=== PATIENT | female | born 1945 ===

== ENCOUNTER 2016-09-10 11:59 | Inpatient (IN) | payer MEDICARE, OTHER ==
[2016-09-10 12:00] VITALS: BMI 25.9
--- NOTE | 2016-09-10 12:33 | ED PDOC ---
HPI: SOB/CHF/COPD Time Seen by Provider: 09/10/16 12:30 Chief Complaint (Nursing): Shortness Of Breath Chief Complaint (Provider): nasal congestion History Per: Patient History/Exam Limitations: no limitations Onset/Duration Of Symptoms: Days (3 months) Current Symptoms Are (Timing): Still Present Additional Complaint(s): Pt. with cough, nasal congestion for 3 months. Today at [facility] and had breathing through her nose so she came to the ED. Pt. states no dyspnea when breathing from her mouth. No phlegm on cough. No nausea, vomit, diarrhea, weakness, abd pain. No vision changes. No chest pain. No leg pain. No dizziness, numbness , tingles. Past Medical History Reviewed: Nursing Documentation, Vital Signs Vital Signs: Last Vital Signs Temp 98.0 F 09/10/16 12:05 Pulse 70 09/10/16 12:05 Resp 17 09/10/16 12:09 BP 129/86 09/10/16 12:05 Pulse Ox 98 09/10/16 14:58 - Medical History PMH: Anxiety, Arthritis, Asthma, Cardia Arrhythmia, COPD, CVA (R leg weakness), Dementia, HTN, Hypothyroidism Denies: Diabetes, HIV, Chronic Kidney Disease - Surgical History Surgical History: Coronary Stent, Pacemaker - Family History Family History: States: Unknown Family Hx - Living Arrangements Living Arrangements: With Family - Social History Current smoker - smoking cessation education provided: No Alcohol: None Drugs: Denies - Immunization History Hx Tetanus Toxoid Vaccination: No Hx Influenza Vaccination: Yes Hx Pneumococcal Vaccination: Yes - Home Medications Home Medications: Ambulatory Orders Medication Instructions Recorded amLODIPine [Norvasc] 5 mg PO DAILY 03/29/15 Amiodarone [Cordarone] 200 mg PO DAILY 09/11/15 Atorvastatin [Lipitor] 20 mg PO HS 09/11/15 Levothyroxine Sodium [Synthroid] 137 mcg PO DAILY 09/11/15 Metoprolol Tartrate [Lopressor] 25 mg PO BID 09/11/15 Rivaroxaban [Xarelto] 20 mg PO DAILY 09/11/15 Nitrofurantoin Macrocrystals 100 mg PO BID #10 cap 03/07/16 [Macrobid] - Allergies Allergies/Adverse Reactions: Allergies Allergy/AdvReac Type Severity Reaction Status Date / Time Penicillins Allergy RASH Verified 09/10/16 12:26 Review of Systems ROS Statement: Except As Marked, All Systems Reviewed And Found Negative ENT: Positive for: Nose Congestion Respiratory: Positive for: Cough, Shortness of Breath (when breathing through nose) Physical Exam - Reviewed Nursing Documentation Reviewed: Yes Vital Signs Reviewed: Yes - Physical Exam Appears: Positive for: Well, Non-toxic, No Acute Distress Head Exam: Positive for: ATRAUMATIC, NORMAL INSPECTION, NORMOCEPHALIC Skin: Positive for: Normal Color, Warm, DRY Eye Exam: Positive for: EOMI, Normal appearance, PERRL ENT: Positive for: Nasal Congestion. Negative for: Pharyngeal Erythema, Tonsillar Exudate Neck: Positive for: Normal, Painless ROM, Supple Cardiovascular/Chest: Positive for: Regular Rate, Rhythm. Negative for: Edema Respiratory: Positive for: Normal Breath Sounds. Negative for: Accessory Muscle Use Gastrointestinal/Abdominal: Positive for: Normal Exam, Bowel Sounds, Soft. Negative for: Tenderness Back: Positive for: Normal Inspection. Negative for: L CVA Tenderness, R CVA Tenderness Extremity: Positive for: Normal ROM, Pedal Edema (trace b/l with trace pitting) . Negative for: Tenderness Neurologic/Psych: Positive for: Alert, Oriented - Laboratory Results Result Diagrams: 09/10/16 13:19 09/10/16 13:19 Interpretation Of Abn Labs: bun 27; probnp 2200 - ECG ECG: Positive for: Interpreted By Me, Viewed By Me ECG Rhythm: Positive for: Venticular Paced O2 Sat by Pulse Oximetry: 98 Pulse Ox Interpretation: Normal - Radiology X-Ray: Interpreted by Me, Viewed By Me X-Ray Interpretation: Cardiomegaly, Other (vascular congestion; pleural effusion ) - Progress ED Course And Treament: 1449: Stable. AAOx3. Feeling better. Will need obs tele admit for chf. Lasix and asa given. 1524: Spoke with Dr. Olson. Will admit tele obs. Will give further orders when pt. reaches floor. Disposition - Clinical Impression Clinical Impression: Acute exacerbation of CHF (congestive heart failure), Dehydration - Patient ED Disposition Is Patient to be Admitted: Yes Counseled Patient/Family Regarding: Studies Performed, Diagnosis - Disposition Disposition Time: 15:25 Condition: FAIR - Pt Status Changed To: Hospital Disposition Of: Observation - POA Present On Arrival: None
[2016-09-10] MEDS ORDERED: Sodium Chloride 0.9% 500 ML IV STA (12:44)
[2016-09-10 13:27] LABS: BASO % 0.8 % (0.0-2.0); EOS % 0.7 % (0.0-4.0); HEMATOCRIT 28.3 % (34.0-47.0); LYMPH # 1.7 K/uL (1.0-4.3); LYMPH % 40.2 % (20.0-40.0); MEAN CELL VOLUME 74.7 fl (81.0-99.0); MEAN CORPUSCULAR HEMOGLOBIN 23.4 pg (27.0-31.0); MEAN CORPUSCULAR HGB CONC 31.3 g/dL (33.0-37.0); MEAN PLATELET VOLUME 8.3 fl (7.2-11.7); MONO # 0.3 K/uL (0.0-0.8); MONO % 7.7 % (0.0-10.0); NEUT # 2.2 K/uL (1.8-7.0); NEUT % 50.6 % (50.0-75.0); NRBC % 0.1 % (0.0-0.0); RED CELL DISTRIBUTION WIDTH 18.1 % (11.5-14.5); WHITE BLOOD COUNT 4.3 K/uL (4.8-10.8)
[2016-09-10 13:47] LABS: ALKALINE PHOSPHATASE 74 U/L (38-126); ALT/SGPT 34 U/L (9-52); AST/SGOT 37 U/L (14-36); BILIRUBIN,TOTAL 0.3 mg/dl (0.2-1.3); BLOOD UREA NITROGEN 27 mg/dl (7-17); CARBON DIOXIDE 26 mmol/L (22-30); CHLORIDE 106 mmol/L (98-107); GFR AFRICAN-AMERICAN > 60; GLUCOSE,RANDOM 84 mg/dL (65-105); SODIUM 139 mmol/l (132-148); TOTAL PROTEIN 7.4 G/DL (6.3-8.2)
[2016-09-10 13:48] LABS: POTASSIUM 4.2 MMOL/L (3.6-5.0)
--- NOTE | 2016-09-10 14:01 | RAD ---
HISTORY: dyspnea COMPARISON: No prior. FINDINGS: LUNGS: Mild vascular congestive changes with what appears represent small right-sided effusion. There may also be some mild bibasilar atelectasis or possibly developing lower lobe alveolar-type infiltrates. PLEURA: No significant pleural effusion identified, no pneumothorax apparent. CARDIOVASCULAR: Cardiomegaly.Ectatic uncoiled aorta. OSSEOUS STRUCTURES: No significant abnormalities. VISUALIZED UPPER ABDOMEN: Normal. OTHER FINDINGS: None. IMPRESSION: Mild vascular congestive changes with what appears represent small right-sided effusion. There may also be some mild bibasilar atelectasis or possibly developing lower lobe alveolar-type infiltrates. Cardiomegaly. Ectatic uncoiled aorta.
[2016-09-10 14:16] LABS: PARTIAL THROMBOPLASTIN TIME 29.8 SECONDS (23.3-32.5)
[2016-09-10] MEDS: guaiFENesin 200 mg/10 ml Syrup UD PO PRN (20:50)
[2016-09-10] MEDS: levoFLOXacin 500 mg in D5W 500 MG/100 ML BAG IVPB SCH (21:35)
[2016-09-11] MEDS: Levothyroxine 175 MCG TAB PO SCH ×2 (05:34→05:38)
[2016-09-11] MEDS ORDERED: Enoxaparin 40 mg Syringe SC SCH (09:00)
[2016-09-11] MEDS: levoFLOXacin 500 mg in D5W 500 MG/100 ML BAG IVPB SCH ×2 (10:08→21:40)
[2016-09-11 10:35] LABS: MEAN CELL VOLUME 75.7 fl (81.0-99.0); MEAN CORPUSCULAR HEMOGLOBIN 23.4 pg (27.0-31.0); RED CELL DISTRIBUTION WIDTH 18.2 % (11.5-14.5); WHITE BLOOD COUNT 4.4 K/uL (4.8-10.8)
[2016-09-11 11:20] LABS: CALCIUM 11.8 mg/dL (8.4-10.2); POTASSIUM 3.2 MMOL/L (3.6-5.0)
[2016-09-11 13:21] LABS: IRON 45 ug/dL (37-170)
--- NOTE | 2016-09-11 13:58 | CP.PCM.HP ---
<Marylin Talamantes - Last Filed: 09/11/16 13:55> History of Present Illness - History of Present Illness History of Present Illness: 71yo F with PMHx Anxiety, Arthritis, Asthma, Cardiac Arrhythmia (pacemaker, Xarelto), COPD, CVA (R leg weakness), Dementia, HTN, Hypothyroidism admitted for CHF exacerbation and dehydration. c/o worsening SOB x3 days. denies LE edema. PMHx as above SHx: pacemaker, CABG FHx: denies Social: denies x3 Allergies: PCN evaluated with attending Present on Admission - Present on Admission Any Indicators Present on Admission: No Review of Systems - Constitutional Constitutional: absent: Chills, Fever - Cardiovascular Cardiovascular: absent: Chest Pain - Respiratory Respiratory: Cough, Dyspnea - Gastrointestinal Gastrointestinal: absent: Abdominal Pain, Diarrhea, Nausea, Vomiting - Genitourinary Genitourinary: absent: Dysuria, Hematuria - Musculoskeletal Musculoskeletal: absent: Back Pain - Neurological Neurological: absent: Headaches Past Patient History - Past Medical History & Family History Past Medical History?: Yes - Past Social History Smoking Status: Former Smoker - CARDIAC Hx Cardiac Disorders: Yes Hx Cardia Arrhythmia: Yes Hx Hypertension: Yes Hx Pacemaker: Yes - PULMONARY Hx Respiratory Disorders: Yes Hx Asthma: Yes - NEUROLOGICAL Hx Neurological Disorder: Yes HX Cerebrovascular Accident: Yes Hx Dementia: Yes - HEENT Hx HEENT Problems: Yes Hx Glaucoma: Yes - RENAL Hx Chronic Kidney Disease: No - ENDOCRINE/METABOLIC Hx Endocrine Disorders: Yes Hx Hypothyroidism: Yes - HEMATOLOGICAL/ONCOLOGICAL Hx Blood Disorders: No Hx Human Immunodeficiency Virus (HIV): No - INTEGUMENTARY Hx Dermatological Problems: No - MUSCULOSKELETAL/RHEUMATOLOGICAL Hx Musculoskeletal Disorders: Yes Hx Arthritis: Yes Hx Falls: No - GASTROINTESTINAL Hx Gastrointestinal Disorders: No - GENITOURINARY/GYNECOLOGICAL Hx Genitourinary Disorders: No - PSYCHIATRIC Hx Psychophysiologic Disorder: Yes Hx Anxiety: Yes Hx Substance Use: No - SURGICAL HISTORY Hx Surgeries: Yes Hx Coronary Stent: Yes Other/Comment: pacemaker - ANESTHESIA Hx Anesthesia: Yes Hx Anesthesia Reactions: No Hx Malignant Hyperthermia: No Meds Home Medications: Home Medication List Medication Instructions Recorded Confirmed Type Benzonatate [Tessalon Perles] 200 mg PO TID PRN #14 sgl 09/13/16 Rx Ferrous Sulfate [Feosol] 325 mg PO TID #90 tab 09/13/16 Rx Furosemide [Lasix] 40 mg PO DAILY #30 udc 09/13/16 Rx Levofloxacin [Levaquin] 500 mg PO DAILY #5 tablet 09/13/16 Rx Loratadine [Claritin] 10 mg PO DAILY #30 tab 09/13/16 Rx Ramipril [Altace] 2.5 mg PO DAILY #30 cap 09/13/16 Rx guaiFENesin [Robitussin] 200 mg PO Q6 PRN #30 09/13/16 Rx Allergies/Adverse Reactions: Allergies Allergy/AdvReac Type Severity Reaction Status Date / Time Penicillins Allergy RASH Verified 09/10/16 12:26 Physical Exam - Head Exam Head Exam: ATRAUMATIC, NORMAL INSPECTION - Eye Exam Eye Exam: Normal appearance - ENT Exam ENT Exam: Mucous Membranes Dry - Neck Exam Neck exam: Positive for: Normal Inspection - Respiratory Exam Respiratory Exam: Rales - Cardiovascular Exam Cardiovascular Exam: REGULAR RHYTHM (pacemaker) - GI/Abdominal Exam GI & Abdominal Exam: Normal Bowel Sounds, Soft - Neurological Exam Neurological exam: Alert, Oriented x3 - Skin Skin Exam: Dry, Warm Results - Vital Signs Recent Vital Signs: Last Vital Signs Temp 97.6 F 09/11/16 12:21 Pulse 71 09/11/16 13:30 Resp 19 09/11/16 12:21 BP 103/68 09/11/16 12:21 Pulse Ox 100 09/11/16 12:21 - Labs Result Diagrams: 09/11/16 10:00 09/11/16 10:00 Labs: Laboratory Results - last 24 hr 09/11/16 09/11/16 09/11/16 10:00 10:00 10:43 WBC 4.4 L RBC 4.63 Hgb 10.8 L Hct 35.0 MCV 75.7 L MCH 23.4 L MCHC 31.0 L RDW 18.2 H Plt Count 248 Sodium 143 Potassium 3.2 L Chloride 105 Carbon Dioxide 25 Anion Gap 16 BUN 22 H Creatinine 1.1 Est GFR ( Amer) 59 Est GFR (Non-Af Amer) 49 Random Glucose 132 H Calcium 11.8 H Iron 45 TIBC 416 % Saturation 11 L Ferritin 8.8 Vitamin B12 217 L Assessment & Plan - Assessment and Plan (Free Text) Assessment: 71yo F with PMHx Anxiety, Arthritis, Asthma, arrythmia/CAD (pacemaker), COPD, CVA (R leg weakness), Dementia, HTN, Hypothyroidism admitted for CHF exacerbation and dehydration. acute on chronic CHF exacerbation -ECHO -ACEi -lasix -c/s cardio community aquired pneumonia -CXR: lower lobe infiltrate -levaquin acute renal injury -monitor renal function -lasix dose to be monitored -IVF prn Asthma, COPD -c/w home med -breathing tx Dementia -c/w home med arrythmia/CAD -c/w ASA, Xarelto HTN -c/w home med Hypothyroidism -c/w home med DVT ppx -restart lovenox tomorrow Decision To Admit - Pt Status Changed To: Hospital Disposition Of: Inpatient - Admit Certification Admit to Inpatient:: After my assessment, the patient will require hospitalization for at least two midnights. This is because of the severity of symptoms shown, intensity of services needed, and/or the medical risk in this patient being treated as an outpatient. - . Bed Request Type: Telemetry Admitting Physician: Mike Olson <Mike Olson Last Filed: 09/13/16 17:57> Results - Vital Signs Recent Vital Signs: Last Vital Signs Temp 97.7 F 09/13/16 12:55 Pulse 70 09/13/16 12:55 Resp 18 09/13/16 12:55 BP 105/70 09/13/16 12:55 Pulse Ox 97 09/13/16 12:55 - Labs Result Diagrams: 09/11/16 10:00 09/13/16 06:00 Labs: Laboratory Results - last 24 hr 09/13/16 06:00 Sodium 142 Potassium 3.9 Chloride 106 Carbon Dioxide 26 Anion Gap 13 BUN 33 H Creatinine 1.1 Est GFR ( Amer) 59 Est GFR (Non-Af Amer) 49 Random Glucose 87 Calcium 11.4 H Assessment & Plan - Assessment and Plan (Free Text) Assessment: Patient seen and examined with residents in rounds. Case, condition, investigative work up and plan discussed in detail. Agree with residents progress note. Plan: As ordered. (Mike Olson MD)
[2016-09-11] MEDS ORDERED: Albuterol-Ipratrop 3 mg / 0.5 (3 ml) UD INH PRN (14:03)
--- NOTE | 2016-09-11 16:26 | CP.PCM.CON ---
History of Present Illness - History of Present Illness History of Present Illness: I was asked to see patient by Dr Olson. Patient is a 71 year old female with a history of HTN, atrial fibrillation. MVR , PPM who presents with cough. Symtpoms have been productive and are associated with sputum production. The patient has had concomitant dyspnea. The patient was found to have pneumonia. The patient denies chest pain or dyspnea. Review of Systems - Constitutional Constitutional: absent: As Per HPI, Anorexia, Chills, Daytime Sleepiness, Excessive Sweating, Fatigue, Fever, Frequent Falls, Headache, Increased Appetite , Lethargy, Malaise, Night Sweats, Snoring, Sleep Apnea, Weight Gain, Weight Loss, Weakness, Other - EENT Eyes: absent: As Per HPI, Blind Spots, Blurred Vision, Change in Vision, Decreased Night Vision, Diplopia, Discharge, Dry Eye, Exophthalmos, Floaters, Irritation, Itchy Eyes, Loss of Peripheral Vision, Pain, Photophobia, Requires Corrective Lenses, Sees Flashes, Spots in Vision, Tunnel Vision, Other Visual Disturbances, Loss of Vision, Other Ears: absent: As Per HPI, Decreased Hearing, Ear Discharge, Ear Pain, Tinnitus, Abnormal Hearing, Disequilibrium, Dizziness, Other Nose/Mouth/Throat: absent: As Per HPI, Epistaxis, Nasal Congestion, Nasal Discharge, Nasal Obstruction, Nasal Trauma, Nose Pain, Post Nasal Drip, Sinus Pain, Sinus Pressure, Bleeding Gums, Change in Voice, Dental Pain, Dry Mouth, Dysphagia, Halitosis, Hoarsness, Lip Swelling, Mouth Lesions, Mouth Pain, Odynophagia, Sore Throat, Throat Swelling, Tongue Swelling, Facial Pain, Neck Pain, Neck Mass, Other - Breasts Breasts: absent: As Per HPI, Change in Shape, Mass, Pain, Nipple Discharge, Nipple Inversion, Skin Changes, Swelling, Other - Cardiovascular Cardiovascular: absent: As Per HPI, Acrocyanosis, Chest Pain, Chest Pain at Rest , Chest Pain with Activity, Claudication, Diaphoresis, Dyspnea, Dyspnea on Exertion, Edema, Irregular Heart Rhythm, Pain Radiating to Arm/Neck/Jaw, Leg Edema, Leg Ulcers, Lightheadedness, Orthopnea, Palpitations, Paroxysmal Nocturnal Dyspnea, Pedal Edema, Radiating Pain, Rapid Heart Rate, Slow Heart Rate, Syncope, Other - Respiratory Respiratory: Cough, Dyspnea on Exertion - Gastrointestinal Gastrointestinal: absent: As Per HPI, Abdominal Pain, Belching, Bloating, Change in Bowel Habits, Change in Stool Character, Coffee Ground Emesis, Constipation, Cramping, Diarrhea, Dyspepsia, Dysphagia, Early Satiety, Excessive Flatus, Fecal Incontinence, Heartburn, Hematemesis, Hematochezia, Loose Stools, Melena, Nausea, Odynophagia, Temesmus, Vomiting, Other - Genitourinary Genitourinary: absent: As Per HPI, Change in Urinary Stream, Difficulty Urinating, Dysuria, Flank Pain, Hematuria, Pyuria, Nocturia, Urinary Incontinence, Urinary Frequency, Urinary Hesitance, Urinary Urgency, Voiding Freq/Small Amts, Freq UTI, Hx Renal/Bladder Calculi, Hx /Renal Surgery, Bladder Distension, Other - Musculoskeletal Musculoskeletal: absent: As Per HPI, Abnormal Gait, Arthralgias, Atrophy, Back Pain, Deformity, Joint Swelling, Limited Range of Motion, Loss of Height, Muscle Cramps, Muscle Weakness, Myalgias, Neck Pain, Numbness, Radiating Pain into Limb, Stiffness, Tingling, Other - Integumentary Integumentary: absent: As Per HPI, Acne, Alopecia, Bleeding Lesions, Change in Hair, Change in Nails, Change in Pigmentation, Changing Lesions, Dry Skin, Erythema, Furuncle, Hirsutism, Lesions, New Lesions, Non-Healing Lesions, Photosensitivity, Pruritus, Rash, Skin Pain, Skin Ulcer, Sores, Striae, Swelling , Unusual Bruising, Wounds, Jaundice, Other - Neurological Neurological: absent: As Per HPI, Abnormal Gait, Abnormal Hearing, Abnormal Movements, Abnormal Speech, Behavioral Changes, Burning Sensations, Confusion, Convulsions, Disequilibrium, Dizziness, Numbness, Focal Weakness, Frequent Falls , Headaches, Lack of Coordination, Loss of Vision, Memory Loss, Paresthesias, Radicular Pain, Restless Legs, Sensory Deficit, Syncope, Tingling, Tremor, Vertigo, Weakness, Other Visual Disturbances, Other - Psychiatric Psychiatric: absent: As Per HPI, Abnormal Sleep Pattern, Anhedonia, Anxiety, Auditory Hallucinations, Behavioral Changes, Change in Appetite, Change in Libido, Confusion, Depression, Difficulty Concentrating, Hallucinations, Homicidal Ideation, Hopelessness, Irritability, Memory Loss, Mood Swings, Panic Attacks, Paranoia, Suicidal Ideation, Visual Hallucinations, Tactile Hallucinations, Other - Endocrine Endocrine: absent: As Per HPI, Change in Body Appearance, Change in Libido, Cold Intolorance, Deepening of Voice, Excessive Sweating, Fatigue, Flushing, Heat Intolorance, Increase in Ring/Shoe/Hat Size, Palpitations, Polydipsia, Polyphagia, Polyuria, Other - Hematologic/Lymphatic Hematologic: absent: As Per HPI, Easy Bleeding, Easy Bruising, Lymphadenopathy, Other Past Patient History - Past Medical History & Family History Past Medical History?: Yes - Past Social History Smoking Status: Former Smoker - CARDIAC Hx Cardiac Disorders: Yes Hx Atrial Fibrillation: Yes Hx Hypercholesterolemia: Yes Hx Hypertension: Yes Hx Pacemaker: Yes - PULMONARY Hx Respiratory Disorders: Yes Hx Asthma: Yes - NEUROLOGICAL Hx Neurological Disorder: Yes HX Cerebrovascular Accident: Yes Hx Dementia: Yes Hx Transient Ischemic Attacks (TIA): Yes - HEENT Hx HEENT Problems: Yes Hx Glaucoma: Yes - RENAL Hx Chronic Kidney Disease: No - ENDOCRINE/METABOLIC Hx Endocrine Disorders: Yes Hx Hypothyroidism: Yes - HEMATOLOGICAL/ONCOLOGICAL Hx Blood Disorders: No Hx Human Immunodeficiency Virus (HIV): No - INTEGUMENTARY Hx Dermatological Problems: No - MUSCULOSKELETAL/RHEUMATOLOGICAL Hx Musculoskeletal Disorders: Yes Hx Arthritis: Yes Hx Falls: No - GASTROINTESTINAL Hx Gastrointestinal Disorders: No - GENITOURINARY/GYNECOLOGICAL Hx Genitourinary Disorders: No - PSYCHIATRIC Hx Psychophysiologic Disorder: Yes Hx Anxiety: Yes Hx Substance Use: No - SURGICAL HISTORY Hx Surgeries: Yes Hx Coronary Stent: No Hx Valve Replacement: Yes (mitral valve) Other/Comment: pacemaker - ANESTHESIA Hx Anesthesia: Yes Hx Anesthesia Reactions: No Hx Malignant Hyperthermia: No Meds Allergies/Adverse Reactions: Allergies Allergy/AdvReac Type Severity Reaction Status Date / Time Penicillins Allergy RASH Verified 09/10/16 12:26 - Medications Medications: Current Medications Albuterol/Ipratropium (Duoneb 3 Mg/0.5 Mg (3 Ml) Ud) 3 ml INH RQ6 PRN PRN Reason: Shortness of Breath Amiodarone HCl (Cordarone) 200 mg PO DAILY [facility] Last Admin: 09/11/16 09:34 Dose: 200 mg Cyanocobalamin (Vitamin B12 1000 Mcg Tab) 1,000 mcg PO DAILY [facility] Docusate Sodium (Colace) 100 mg PO BID [facility] Ferrous Sulfate (Feosol) 325 mg PO TID [facility] Furosemide (Lasix) 40 mg IVP DAILY [facility] Last Admin: 09/11/16 09:35 Dose: 40 mg Guaifenesin (Robitussin) 200 mg PO Q6 PRN PRN Reason: Cough Last Admin: 09/10/16 20:50 Dose: 200 mg Levofloxacin/Dextrose (Levaquin 500mg) 500 mg in 100 mls @ 100 mls/hr IVPB DAILY@2200 [facility] Latanoprost (Xalatan Opht) 1 drop OD HS [facility] Levothyroxine Sodium (Synthroid) 175 mcg PO 0630 [facility] Last Admin: 09/11/16 05:38 Dose: 175 mcg Metoprolol Tartrate (Lopressor) 50 mg PO DAILY [facility] Last Admin: 09/11/16 09:39 Dose: 50 mg Montelukast Sodium (Singulair) 10 mg PO DAILY [facility] Last Admin: 09/11/16 09:40 Dose: 10 mg Montelukast Sodium (Singulair) 10 mg PO DAILY [facility] Ramipril (Altace) 2.5 mg PO DAILY [facility] Last Admin: 09/11/16 09:33 Dose: 2.5 mg Rivaroxaban (Xarelto) 20 mg PO DAILY [facility] PRN Reason: Protocol Results - Vital Signs Recent Vital Signs: Last Vital Signs Temp 98.4 F 09/11/16 16:00 Pulse 70 09/11/16 16:00 Resp 18 09/11/16 16:00 BP 108/72 09/11/16 16:00 Pulse Ox 100 09/11/16 16:00 - Labs Result Diagrams: 09/11/16 10:00 09/11/16 10:00 Labs: Laboratory Results - last 24 hr 09/11/16 09/11/16 09/11/16 10:00 10:00 10:43 WBC 4.4 L RBC 4.63 Hgb 10.8 L Hct 35.0 MCV 75.7 L MCH 23.4 L MCHC 31.0 L RDW 18.2 H Plt Count 248 Sodium 143 Potassium 3.2 L Chloride 105 Carbon Dioxide 25 Anion Gap 16 BUN 22 H Creatinine 1.1 Est GFR ( Amer) 59 Est GFR (Non-Af Amer) 49 Random Glucose 132 H Calcium 11.8 H Iron 45 TIBC 416 % Saturation 11 L Ferritin 8.8 Vitamin B12 217 L - EKG Data EKG Interpreted by: Myself Assessment & Plan (1) Chronic atrial fibrillation Assessment and Plan: continue Xarelto Status: Acute (2) Essential (primary) hypertension Assessment and Plan: blood pressure controlled Status: Chronic (3) Type 2 diabetes mellitus without complications Assessment and Plan: recommend continued glucose control Status: Chronic
[2016-09-11] MEDS: guaiFENesin 200 mg/10 ml Syrup UD PO PRN (16:44)
[2016-09-11] MEDS: Latanoprost 0.005% Opht SOUTION OD SCH (21:40)
[2016-09-12] MEDS: Levothyroxine 175 MCG TAB PO SCH (06:16)
[2016-09-12 13:55] LABS: FOLATE 12.7 ng/mL
[2016-09-12] MEDS: Potassium Chloride 20 mEq ER Tab PO SCH (17:28)
--- NOTE | 2016-09-12 18:32 | CARD ---
APPROVED REPORT EXAM: Two-dimensional and M-mode echocardiogram with Doppler and color Doppler. Other Information Quality : AverageRhythm : NSR INDICATION Congestive Heart Failure 2D DIMENSIONS IVSd1.60 (0.7-1.1cm)LVDd4.55 (3.9-5.9cm) LVOT Diameter2.16 (1.8-2.4cm)PWd1.08 (0.7-1.1cm) IVSs1.29 (0.8-1.2cm)LVDs3.98 (2.5-4.0cm) FS (%) 12.6 %PWs1.25 (0.8-1.2cm) M-Mode DIMENSIONS Left Atrium (MM)4.80 (2.5-4.0cm)Aortic Root4.00 (2.2-3.7cm) Aortic Cusp Exc.2.92 (1.5-2.0cm) Aortic Valve LVOT Peak Glrttiwk719.4cm/s Mitral Valve MV E Zfrnuguz875.7cm/sMV DECEL [id number] A Xofjwbdg57.7cm/s MV GKC62glD/A ratio4.5MVA (PHT)2.82cm2 TDI Lateral E' Peak V14.01cm/sMedial E' Peak V5.62cm/sE/Lateral E'7.7 E/Medial E'19.2 Pulmonary Valve PV Peak Oraqbivb27.6cm/s Tricuspid Valve TR Peak Cgxztesn037dd/sRAP [id number] Peak Gr.21mmHg [id number] LEFT VENTRICLE The left ventricle is normal size. There is normal left ventricular wall thickness. The left ventricular function is normal. The left ventricular ejection fraction is 55% There is normal LV segmental wall motion. Transmitral Doppler flow pattern is Grade IV-fixed restrictive diastolic dysfunction. No left ventricle thrombus noted on this study. There is no ventricular septal defect visualized. There is no left ventricular aneurysm. There is no mass noted in the left ventricle. RIGHT VENTRICLE The right ventricle is normal size. There is normal right ventricular wall thickness. The right ventricular systolic function is normal. ATRIA The left atrium is mildly dilated. The right atrium is mildly dilated. The interatrial septum is intact with no evidence for an atrial septal defect. AORTIC VALVE The aortic valve is mildly sclerotic. There is trace aortic regurgitation. There is no aortic valvular stenosis. There is no aortic valvular vegetation. MITRAL VALVE The mitral valve is normal in structure and function. There is no evidence of mitral valve prolapse. There is no mitral valve stenosis. There is no mitral valve regurgitation noted. TRICUSPID VALVE The tricuspid valve is normal in structure and function. There is no tricuspid valve regurgitation noted. There is no tricuspid valve prolapse or vegetation. There is no tricuspid valve stenosis. PULMONIC VALVE The pulmonary valve is normal in structure and function. There is trace pulmonic valvular regurgitation. There is no pulmonic valvular stenosis. GREAT VESSELS The aortic root is normal in size. The ascending aorta is normal in size. The IVC is normal in size and collapses >50% with inspiration. PERICARDIAL EFFUSION The pericardium appears normal. There is no pleural effusion. <Conclusion> Normal LV Systolic Function Aortic Valve Sclerosis Trace AI Diastolic dysfunction with restrictive diastolic filling
[2016-09-12] MEDS: Latanoprost 0.005% Opht SOUTION OD SCH (21:50)
[2016-09-12] MEDS: guaiFENesin 200 mg/10 ml Syrup UD PO PRN (21:50)
[2016-09-12] MEDS: levoFLOXacin 500 mg in D5W 500 MG/100 ML BAG IVPB SCH (22:31)
[2016-09-13] MEDS: Levothyroxine 175 MCG TAB PO SCH (06:14)
[2016-09-13 06:38] LABS: CALCIUM 11.4 mg/dL (8.4-10.2)
[2016-09-13 07:45] LABS: POTASSIUM 3.9 MMOL/L (3.6-5.0)
[2016-09-13 08:17] VITALS: RESP 18
[2016-09-13] MEDS: Potassium Chloride 20 mEq ER Tab PO SCH (08:59)
--- NOTE | 2016-09-13 09:02 | CP.PCM.DIS ---
<Marylin Talamantes - Last Filed: 09/13/16 12:55> Provider - Provider Date of Admission: 09/11/16 09:19 Attending physician: Mike Olson MD Time Spent in preparation of Discharge (in minutes): 20 Diagnosis - Discharge Diagnosis (1) CAP (community acquired pneumonia) Status: Acute (2) Acute exacerbation of CHF (congestive heart failure) Status: Acute (3) Chronic atrial fibrillation Status: Acute (4) CAD (coronary artery disease) Status: Chronic (5) Essential (primary) hypertension Status: Chronic (6) Hypothyroid Status: Chronic (7) Mixed hyperlipidemia Status: Chronic (8) Type 2 diabetes mellitus without complications Status: Chronic Hospital Course - Lab Results Lab Results: Most Recent Lab Values WBC 4.4 K/uL (4.8-10.8) L 09/11/16 10:00 RBC 4.63 Mil/uL (3.80-5.20) 09/11/16 10:00 Hgb 10.8 g/dL (12.0-16.0) L 09/11/16 10:00 Hct 35.0 % (34.0-47.0) 09/11/16 10:00 MCV 75.7 fl (81.0-99.0) L 09/11/16 10:00 MCH 23.4 pg (27.0-31.0) L 09/11/16 10:00 MCHC 31.0 g/dL (33.0-37.0) L 09/11/16 10:00 RDW 18.2 % (11.5-14.5) H 09/11/16 10:00 Plt Count 248 K/uL (130-400) 09/11/16 10:00 MPV 8.3 fl (7.2-11.7) 09/10/16 13:19 Neut % (Auto) 50.6 % (50.0-75.0) 09/10/16 13:19 Lymph % (Auto) 40.2 % (20.0-40.0) H 09/10/16 13:19 Smith % (Auto) 7.7 % (0.0-10.0) 09/10/16 13:19 Eos % (Auto) 0.7 % (0.0-4.0) 09/10/16 13:19 Baso % (Auto) 0.8 % (0.0-2.0) 09/10/16 13:19 Neut # 2.2 K/uL (1.8-7.0) 09/10/16 13:19 Lymph # 1.7 K/uL (1.0-4.3) 09/10/16 13:19 Smith # 0.3 K/uL (0.0-0.8) 09/10/16 13:19 Eos # 0.0 K/uL (0.0-0.7) 09/10/16 13:19 Baso # 0.0 K/uL (0.0-0.2) 09/10/16 13:19 PT 13.9 SECONDS (9.6-11.2) H 09/10/16 13:19 INR 1.34 (0.92-1.08) H 09/10/16 13:19 APTT 29.8 SECONDS (23.3-32.5) 09/10/16 13:19 Sodium 142 mmol/l (132-148) 09/13/16 06:00 Potassium 3.9 MMOL/L (3.6-5.0) 09/13/16 06:00 Chloride 106 mmol/L (98-107) 09/13/16 06:00 Carbon Dioxide 26 mmol/L (22-30) 09/13/16 06:00 Anion Gap 13 (10-20) 09/13/16 06:00 BUN 33 mg/dl (7-17) H 09/13/16 06:00 Creatinine 1.1 mg/dL (0.7-1.2) 09/13/16 06:00 Est GFR ( Amer) 59 09/13/16 06:00 Est GFR (Non-Af Amer) 49 09/13/16 06:00 Random Glucose 87 mg/dL (65-105) 09/13/16 06:00 Calcium 11.4 mg/dL (8.4-10.2) H 09/13/16 06:00 Iron 45 ug/dL (37-170) 09/11/16 10:43 TIBC 416 ug/dL (250-450) 09/11/16 10:43 % Saturation 11 % (20-55) L 09/11/16 10:43 Ferritin 8.8 ng/mL 09/11/16 10:00 Total Bilirubin 0.3 mg/dl (0.2-1.3) 09/10/16 13:19 AST 37 U/L (14-36) H 09/10/16 13:19 ALT 34 U/L (9-52) 09/10/16 13:19 Alkaline Phosphatase 74 U/L (38-126) 09/10/16 13:19 Troponin I < 0.0120 ng/mL (0.00-0.120) 09/10/16 13:19 NT-Pro-B Natriuret Pep 2200 pg/ml (0-900) H 09/10/16 13:19 Total Protein 7.4 G/DL (6.3-8.2) 09/10/16 13:19 Albumin 3.8 g/dL (3.5-5.0) 09/10/16 13:19 Globulin 3.6 gm/dL (2.2-3.9) 09/10/16 13:19 Albumin/Globulin Ratio 1.0 (1.0-2.1) 09/10/16 13:19 Vitamin B12 217 pg/mL (239-931) L 09/11/16 10:00 Folate 12.7 ng/mL 09/11/16 10:00 - Hospital Course Hospital Course: 71yo F with PMHx Anxiety, Arthritis, Asthma, Cardiac Arrhythmia/Afib (pacemaker , Xarelto), COPD, CVA (R leg weakness), Dementia, HTN, Hypothyroidism admitted for CHF exacerbation and dehydration. CHF exacerbation treated with IV lasix which pt responded well to and cardio Dr. Lott c/s for management. CXR showed pneumonia and IV levaquin started with continuation of PO levaquin upon discharge. Discharge Exam - Head Exam Head Exam: ATRAUMATIC, NORMAL INSPECTION - Eye Exam Eye Exam: Normal appearance - ENT Exam ENT Exam: Mucous Membranes Moist - Neck Exam Neck exam: Normal Inspection - Respiratory Exam Respiratory Exam: NORMAL BREATHING PATTERN - Cardiovascular Exam Cardiovascular Exam: REGULAR RHYTHM - GI/Abdominal Exam GI & Abdominal Exam: Soft - Extremities Exam Extremities exam: pedal edema - Neurological Exam Neurological exam: Alert, Oriented x3 - Skin Skin Exam: Dry, Warm Discharge Plan - Discharge Medications Prescriptions: Benzonatate [Tessalon Perles] 200 mg PO TID PRN #14 sgl PRN Reason: Cough Ferrous Sulfate [Feosol] 325 mg PO TID #90 tab Furosemide [Lasix] 40 mg PO DAILY #30 udc guaiFENesin [Robitussin] 200 mg PO Q6 PRN #30 PRN Reason: Cough Levofloxacin [Levaquin] 500 mg PO DAILY #5 tablet Loratadine [Claritin] 10 mg PO DAILY #30 tab Ramipril [Altace] 2.5 mg PO DAILY #30 cap - Follow Up Plan Condition: FAIR Disposition: HOME/ ROUTINE Instructions: Heart Failure (DC), Bacterial Pneumonia (DC) Additional Instructions: patient cleared for discharge to Home today by and meds to meds ( rx for meds provided) pt wishes to [facility] meds at her outpatient pharmacy ([place]) f/u with and (appointment made with on at 9 am Referrals: Liudmila Milner MD [Medical Doctor] - Armen Lott MD [Staff Provider] - <Mike Olson - Last Filed: 09/13/16 18:08> Provider - Provider Date of Admission: 09/11/16 09:19 Attending physician: Mike Olson MD Hospital Course - Lab Results Lab Results: Most Recent Lab Values WBC 4.4 K/uL (4.8-10.8) L 09/11/16 10:00 RBC 4.63 Mil/uL (3.80-5.20) 09/11/16 10:00 Hgb 10.8 g/dL (12.0-16.0) L 09/11/16 10:00 Hct 35.0 % (34.0-47.0) 09/11/16 10:00 MCV 75.7 fl (81.0-99.0) L 09/11/16 10:00 MCH 23.4 pg (27.0-31.0) L 09/11/16 10:00 MCHC 31.0 g/dL (33.0-37.0) L 09/11/16 10:00 RDW 18.2 % (11.5-14.5) H 09/11/16 10:00 Plt Count 248 K/uL (130-400) 09/11/16 10:00 MPV 8.3 fl (7.2-11.7) 09/10/16 13:19 Neut % (Auto) 50.6 % (50.0-75.0) 09/10/16 13:19 Lymph % (Auto) 40.2 % (20.0-40.0) H 09/10/16 13:19 Smith % (Auto) 7.7 % (0.0-10.0) 09/10/16 13:19 Eos % (Auto) 0.7 % (0.0-4.0) 09/10/16 13:19 Baso % (Auto) 0.8 % (0.0-2.0) 09/10/16 13:19 Neut # 2.2 K/uL (1.8-7.0) 09/10/16 13:19 Lymph # 1.7 K/uL (1.0-4.3) 09/10/16 13:19 Smith # 0.3 K/uL (0.0-0.8) 09/10/16 13:19 Eos # 0.0 K/uL (0.0-0.7) 09/10/16 13:19 Baso # 0.0 K/uL (0.0-0.2) 09/10/16 13:19 PT 13.9 SECONDS (9.6-11.2) H 09/10/16 13:19 INR 1.34 (0.92-1.08) H 09/10/16 13:19 APTT 29.8 SECONDS (23.3-32.5) 09/10/16 13:19 Sodium 142 mmol/l (132-148) 09/13/16 06:00 Potassium 3.9 MMOL/L (3.6-5.0) 09/13/16 06:00 Chloride 106 mmol/L (98-107) 09/13/16 06:00 Carbon Dioxide 26 mmol/L (22-30) 09/13/16 06:00 Anion Gap 13 (10-20) 09/13/16 06:00 BUN 33 mg/dl (7-17) H 09/13/16 06:00 Creatinine 1.1 mg/dL (0.7-1.2) 09/13/16 06:00 Est GFR ( Amer) 59 09/13/16 06:00 Est GFR (Non-Af Amer) 49 09/13/16 06:00 Random Glucose 87 mg/dL (65-105) 09/13/16 06:00 Calcium 11.4 mg/dL (8.4-10.2) H 09/13/16 06:00 Iron 45 ug/dL (37-170) 09/11/16 10:43 TIBC 416 ug/dL (250-450) 09/11/16 10:43 % Saturation 11 % (20-55) L 09/11/16 10:43 Ferritin 8.8 ng/mL 09/11/16 10:00 Total Bilirubin 0.3 mg/dl (0.2-1.3) 09/10/16 13:19 AST 37 U/L (14-36) H 09/10/16 13:19 ALT 34 U/L (9-52) 09/10/16 13:19 Alkaline Phosphatase 74 U/L (38-126) 09/10/16 13:19 Troponin I < 0.0120 ng/mL (0.00-0.120) 09/10/16 13:19 NT-Pro-B Natriuret Pep 2200 pg/ml (0-900) H 09/10/16 13:19 Total Protein 7.4 G/DL (6.3-8.2) 09/10/16 13:19 Albumin 3.8 g/dL (3.5-5.0) 09/10/16 13:19 Globulin 3.6 gm/dL (2.2-3.9) 09/10/16 13:19 Albumin/Globulin Ratio 1.0 (1.0-2.1) 09/10/16 13:19 Vitamin B12 217 pg/mL (239-931) L 09/11/16 10:00 Folate 12.7 ng/mL 09/11/16 10:00
--- NOTE | 2016-09-13 12:21 | IP.NPCORE ---
Heart Failure Core Measure - Follow up Follow Up Date (must be within 7 days from discharge): 09/18/16 Follow Up Time: 09:00 (9 am)
[2016-09-13 12:55] VITALS: BP 105/70; PULSE 70; TEMP 97.7; O2SAT 97
--- NOTE | 2016-09-13 19:07 | CARD ---
APPROVED REPORT EKG Measurement Heart [id number] <Conclusion> Ventricular-paced rhythm Abnormal ECG
== END 2016-09-13 13:50 | disposition home or self-care (01) | DRG 291 ==
LOC: H.ER 11:59 → H.ERHOLD 15:23 → H.TEL 18:03 → OBSVTOIN 09-11 09:19
PROVIDERS: ADMIT Internal Medicine; ATTEND Internal Medicine
DX: I11.0 Hypertensive heart disease with heart failure (principal); J18.9 Pneumonia, unspecified organism; N17.9 Acute kidney failure, unspecified; I69.351 Hemiplegia and hemiparesis following cerebral infarction affecting right dominant side; I48.2 Chronic atrial fibrillation; F03.90 Unspecified dementia, unspecified severity, without behavioral disturbance, psychotic disturbance, mood disturbance, and anxiety; E11.9 Type 2 diabetes mellitus without complications; J44.0 Chronic obstructive pulmonary disease with (acute) lower respiratory infection; E86.0 Dehydration; E03.9 Hypothyroidism, unspecified; E78.2 Mixed hyperlipidemia; Z79.01 Long term (current) use of anticoagulants; I25.10 Atherosclerotic heart disease of native coronary artery without angina pectoris; F41.9 Anxiety disorder, unspecified; M19.90 Unspecified osteoarthritis, unspecified site; J45.909 Unspecified asthma, uncomplicated; Z95.0 Presence of cardiac pacemaker; I34.0 Nonrheumatic mitral (valve) insufficiency; G47.30 Sleep apnea, unspecified; Z87.891 Personal history of nicotine dependence; E78.00 Pure hypercholesterolemia, unspecified; H40.9 Unspecified glaucoma; Z95.2 Presence of prosthetic heart valve; Z88.0 Allergy status to penicillin; Z95.1 Presence of aortocoronary bypass graft; Z95.5 Presence of coronary angioplasty implant and graft